=== PATIENT | female | born 1990 | race Hispanic/Latino ===

== ENCOUNTER 2025-02-12 13:06 | Emergency (ER) | payer BC ==
[~2025-02-12] VITALS: Ht 160 cm; Wt 67.1 kg
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
[2025-02-12] MEDS: hydrOXYzine 50MG VIAL 50 MG/ML VIAL IM STA (13:22)
--- NOTE | 2025-02-12 14:22 | NUR ---
TRIAGE COMPLETED BY FELICE DE LEON RN
[2025-02-12] MEDS ORDERED: HYDR-3421 PO (14:24)
[2025-02-12 14:25] VITALS: BP 138/74; PULSE 92; RESP 20; TEMP 97.9; O2SAT 100
== END 2025-02-12 14:26 | disposition home or self-care (01) ==
LOC: EDH 13:06
DX: F41.9 Anxiety disorder, unspecified (principal); Z76.0 Encounter for issue of repeat prescription
CPT/HCPCS: 99284; 96372; J3410; 99283